=== PATIENT | female | born 1995 | race Caucasian/White ===

== ENCOUNTER 2016-12-02 00:24 | Emergency (ER) | payer SELFPAY ==
[2016-12-02 00:35] VITALS: BP 136/81; PULSE 108; TEMP 98.5; BMI 23.8
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
[2016-12-02 02:11] LABS: URINE MARIJUANA THC NEGATIVE ng/ml (CUTOFF=50)
== END 2016-12-02 02:07 | disposition home or self-care (01) ==
LOC: FER 00:24
DX: F10.929 Alcohol use, unspecified with intoxication, unspecified (principal)
CPT/HCPCS: 36415; 80307; 99283-25